=== PATIENT | male | born 1930 | race African-American/Black ===

== ENCOUNTER 2016-07-25 21:57 | Emergency (ER) | payer MEDICARE ==
[2016-07-25 23:11] LABS: ABSOLUTE LYMPHOCYTES (AUTO) 0.5 10^3/uL (0.5-4.7); ABSOLUTE MONOCYTES (AUTO) 0.8 10^3/uL (0.1-1.4); ABSOLUTE NEUT (AUTO) 8.4 10^3/uL (1.7-8.2); BASOPHILS % (AUTO) 0.2 % (0-2); EOSINOPHILS % (AUTO) 0.3 % (0-6); HEMOGLOBIN 12.4 g/dL (13.5-17.0); HGB HCT DIFFERENCE -0.8; LYMPHOCYTES % (AUTO) 5.6 % (13-45); MEAN CORPUSCULAR HEMOGLOBIN 31.6 pg (27.0-33.4); MEAN CORPUSCULAR HGB CONC 32.7 g/dL (32.0-36.0); MEAN CORPUSCULAR VOLUME 97 fl (80-97); MONOCYTES % (AUTO) 8.3 % (3-13); RED BLOOD COUNT 3.93 10^6/uL (4.35-5.55); RED CELL DISTRIBUTION WIDTH 13.5 % (11.5-14.0); SEGMENTED NEUTROPHILS % (AUTO) 85.6 % (42-78); WHITE BLOOD COUNT 9.8 10^3/uL (4.0-10.5)
[2016-07-25 23:22] LABS: ALANINE AMINOTRANSFERASE 28 U/L (21-72); ALBUMIN 3.5 g/dL (3.5-5.0); ALKALINE PHOSPHATASE 64 U/L (38-126); ANION GAP 16 (5-19); ASPARTATE AMINO TRANSFERASE 22 U/L (17-59); BILIRUBIN,DIRECT 0.8 mg/dL (0.0-0.4); BILIRUBIN,TOTAL 0.9 mg/dL (0.2-1.3); BLOOD UREA NITROGEN 38 mg/dL (7-20); CALCIUM 9.5 mg/dL (8.4-10.2); CARBON DIOXIDE 23 mmol/L (22-30); CHLORIDE 106 mmol/L (98-107); CREATINE KINASE 113 U/L (55-170); CREATININE RESULT 2.17 mg/dL (0.52-1.25); GLUCOSE 151 mg/dL (75-110); SODIUM 144.5 mmol/L (137-145)
[2016-07-25 23:34] LABS: CREATINE KINASE MB 1.07 ng/mL (<4.55); TROPONIN I < 0.012 ng/mL
[2016-07-26] MEDS ORDERED: BACITRACIN ZINC OINTMENT 15 GM TP ONE (00:37)
[2016-07-26] MEDS ORDERED: NORMAL SALINE 500 ML IV ONE (00:40)
--- NOTE | 2016-07-26 00:46 | ER Document Report ---
ED General - General Chief Complaint: Near Syncope Stated Complaint: GENERAL WEAKNESS Time Seen by Provider: 07/26/16 00:16 Mode of Arrival: Stretcher Information source: Patient, Relative Cannot obtain history due to: Dementia TRAVEL OUTSIDE OF THE [place] IN LAST 30 DAYS: No - HPI Notes: Patient is a 85-year-old black male history of insulin-dependent diabetes chronic kidney disease hypertension dementia presents to emergency department with report that he had a bowel movement and was standing up trying to bear down having a bowel movement when he had a near syncopal event and family laid down and he appeared generally weak. Blood pressure shortly thereafter was 112 systolic. Patient was given 100 mL of normal saline and arrived with stable blood pressure. Bowel movement may have been slightly looser than normal, but there is no rustam diarrhea or bright red blood per rectum. There's been no recent antibiotic use. The patient denies any pain anywhere. There is no head injury. Tetanus is up-to-date. Patient had a small abrasion on the left foot was some bleeding but he denies any pain there. No recent cough or congestion. There is a history of recent strep viridans infection of the urine on 07/12/16. team assembler granddaughter is unaware of any infection being treated with antibiotics. No recent medication changes. Note that the patient takes valsartan hydrochlorothiazide, but is not on Lasix. Patient normally ambulates very minimally with significant assistance. He has chronic dementia but can carry on limited conversations. Granddaughter states that he seems somewhat less interactive and more somnolent currently. There is no report of any head injury. - Related Data Allergies/Adverse Reactions: No Known Allergies Allergy (Verified 01/08/16 10:11) Past Medical History - Social History Smoking Status: Never Smoker Cigarette use (# per day): No Frequency of alcohol use: None Drug Abuse: None Lives with: Family Family History: CAD, Other - Renal failure - Past Medical History Cardiac Medical History: Reports: Hx Hypertension Neurological Medical History: Denies: Hx Seizures Endocrine Medical History: Reports: Hx Diabetes Mellitus Type 2, Hx Hypothyroidism Musculoskeltal Medical History: Reports Hx Arthritis - Generalized Review of Systems - Review of Systems Notes: REVIEW OF SYSTEMS: CONSTITUTIONAL : Denies fever, chills, or sweats. Denies recent illness. EENT: Denies eye, ear, throat, or mouth pain or symptoms. Denies nasal or sinus congestion or discharge. Denies throat, tongue, or mouth swelling or difficulty swallowing. CARDIOVASCULAR: Denies chest pain. Denies palpitations or racing or irregular heart beat. Denies ankle edema. RESPIRATORY: Denies cough, cold, or chest congestion. Denies shortness of breath, difficulty breathing, or wheezing. GASTROINTESTINAL: Denies abdominal pain or distention. Denies nausea, vomiting. Denies blood in vomitus, stools, or per rectum. Denies black, tarry stools. Denies constipation. GENITOURINARY: Denies difficulty urinating, painful urination, burning, frequency, blood in urine, or discharge. MUSCULOSKELETAL: Denies back or neck pain or stiffness. Denies joint pain or swelling. SKIN: Denies rash, lesions or sores. HEMATOLOGIC : Denies easy bruising or bleeding. LYMPHATIC: Denies swollen, enlarged glands. NEUROLOGICAL: Denies passing out or loss of consciousness. Denies dizziness or lightheadedness. Denies headache. Denies weakness or paralysis or loss of use of either side. Denies sensory loss, numbness, or tingling. Denies seizures. PSYCHIATRIC: Denies anxiety or stress. Denies depression, suicidal ideation, or homicidal ideation. ALL OTHER SYSTEMS REVIEWED AND NEGATIVE. Dictation was performed using [employer] voice recognition software Physical Exam - Vital signs Vitals: Temp Pulse Resp BP Pulse Ox 98.3 F 76 16 135/65 H 94 07/25/16 22:03 07/25/16 22:03 07/25/16 22:03 07/25/16 22:03 07/25/16 22:03 - Notes Notes: PHYSICAL EXAMINATION: GENERAL: Well-appearing, well-nourished and in no acute distress. HEAD: Atraumatic, normocephalic. EYES: Pupils equal round and reactive to light, extraocular movements intact, sclera anicteric, conjunctiva are normal. ENT: Nares patent, oropharynx clear without exudates. Moist mucous membranes. NECK: Normal range of motion, supple without lymphadenopathy. No obvious carotid bruits. LUNGS: Breath sounds clear to auscultation bilaterally and equal. No wheezes rales or rhonchi. HEART: Regular rate and rhythm without murmurs ABDOMEN: Soft, nontender, nondistended abdomen. No guarding, no rebound. No masses appreciated. Musculoskeletal: Normal range of motion, no pitting or edema. No cyanosis. NEUROLOGICAL: Cranial nerves grossly intact. Normal sensory, motor exams. Mild cerebellar ataxia noted. Patient is alert to person and place, recognizes that it is his granddaughter with him. He cannot get the granddaughter's name correct however, and she states this is somewhat unusual. PSYCH: Normal mood, normal affect. SKIN: Warm, Dry, normal turgor, no rashes noted. Patient has abrasion/small skin avulsion on the plantar aspect of the left third toe. There is no bony tenderness or deformity. No evidence for abscess. And distally patient is neurovascularly intact. Course - Re-evaluation Re-evalutation: 07/26/16 00:48 07/26/16 00:49 Patient gently rehydrated. Left foot abrasion cleaned and antibiotic ointment applied. Tetanus is up-to- date. 07/26/16 02:57 Patient wants on cardiac care nurse and had no ectopy. Vital signs remained stable. There is no evidence for significant anemia. Patient's chronic renal insufficiency is unchanged. Head CT negative for any acute intracranial process or CVA or hemorrhage. No evidence for urinary tract infection or severe dehydration. Symptoms fit more so with a vasovagal response from bowel movement. Discussed with the patient's granddaughter and the need to lay him down flat if symptoms recur. - Vital Signs Vital signs: Temp Pulse Resp BP Pulse Ox 98.3 F 76 20 142/65 H 98 07/25/16 22:03 07/25/16 22:03 07/26/16 01:01 07/26/16 01:01 07/26/16 01:01 - Laboratory Result Diagrams: 07/25/16 22:05 07/25/16 22:05 Laboratory results interpreted by me: 07/25/16 07/25/16 07/25/16 22:05 22:05 22:05 RBC 3.93 L Hgb 12.4 L Seg Neutrophils % 85.6 H Lymphocytes % 5.6 L Absolute Neutrophils 8.4 H BUN 38 H Creatinine 2.17 H Est GFR ( Amer) 35 L Est GFR (Non-Af Amer) 29 L Glucose 151 H Direct Bilirubin 0.8 H TSH 9.07 H Urine Urobilinogen 07/26/16 01:00 RBC Hgb Seg Neutrophils % Lymphocytes % Absolute Neutrophils BUN Creatinine Est GFR ( Amer) Est GFR (Non-Af Amer) Glucose Direct Bilirubin TSH Urine Urobilinogen 4.0 H - EKG Interpretation by Me EKG shows normal: Sinus rhythm Additional EKG results interpreted by me: 07/26/16 00:48 EKG as interpreted by me showed normal sinus rhythm heart rate of 74. There is no gross evidence for acute MO or ischemia identified. There is nonspecific T- wave abnormalities noted. There is no change from previous EKG reviewed from . Discharge - Discharge Clinical Impression: Near syncope, Abrasion, Chronic renal insufficiency, stage III (moderate) Condition: Stable Disposition: HOME, SELF-CARE Instructions: Vasovagal Symptoms ([facility]) Additional Instructions: Stand up slowly. Laid down flat if you feel lightheaded or weak. Drink plenty fluids. Referrals: MARISSA SMALLWOOD MD [Primary Care Provider] - Follow up as needed
[2016-07-26 01:07] LABS: THYROID STIMULATING HORMONE 9.07 uIU/mL (0.47-4.68)
[2016-07-26 01:20] LABS: APPEARANCE,URINE CLEAR; BILIRUBIN,URINE NEGATIVE (NEGATIVE); GLUCOSE, URINE NEGATIVE (NEGATIVE); KETONES,URINE NEGATIVE (NEGATIVE); LEUKOCYTE ESTERASE,URINE NEGATIVE (NEGATIVE); NITRITE,URINE NEGATIVE (NEGATIVE); PROTEIN,URINE NEGATIVE (NEGATIVE); URINE SPECIFIC GRAVITY 1.014
[2016-07-26 03:03] VITALS: BP 180/87
--- NOTE | 2016-07-26 12:07 | EKG REPORT ---
SEVERITY:- ABNORMAL ECG - SINUS RHYTHM FIRST DEGREE AV BLOCK NONSPECIFIC T ABNORMALITIES, LATERAL LEADS : Confirmed by: Jose Thompson 26-Jul-2016 12:06:44
== END 2016-07-26 03:51 | disposition home or self-care (01) ==
LOC: ER 21:57
DX: R55 Syncope and collapse (principal); R53.1 Weakness; S90.812A Abrasion, left foot, initial encounter; I12.9 Hypertensive chronic kidney disease with stage 1 through stage 4 chronic kidney disease, or unspecified chronic kidney disease; E11.22 Type 2 diabetes mellitus with diabetic chronic kidney disease; N18.3 Chronic kidney disease, stage 3 (moderate); E03.9 Hypothyroidism, unspecified; F03.90 Unspecified dementia, unspecified severity, without behavioral disturbance, psychotic disturbance, mood disturbance, and anxiety; X58.XXXA Exposure to other specified factors, initial encounter; Y92.009 Unspecified place in unspecified non-institutional (private) residence as the place of occurrence of the external cause; Z79.4 Long term (current) use of insulin
CPT/HCPCS: 93005; 99285; 36415; 84439; 82553; 82550; 84443; 85025; 80053; 81001; 84484; 70450; 93010; J3490; J7040

== ENCOUNTER 2016-11-28 09:49 | Emergency (ER) | payer MEDICARE ==
--- NOTE | 2016-11-28 10:13 | RADIOLOGY REPORT (SQ) ---
EXAM DESCRIPTION: CT HEAD WITHOUT COMPLETED DATE/TIME: 11/28/2016 9:57 am REASON FOR STUDY: bed 14 stroke alert COMPARISON: 07/26/2016 TECHNIQUE: Axial images acquired through the brain without intravenous contrast. Images reviewed wi th bone, brain and subdural windows. Images stored on PACS. All CT scanners at this facility use dose modulation, iterative reconstruction, and/or weight based d osing when appropriate to reduce radiation dose to as low as reasonably achievable (ALARA). [facility]: Dose Right [facility]: CareDose [facility]: Dose Right [facility]: Teradose 4D [facility]: [employer]ano RADIATION DOSE: 28.1 mGy. LIMITATIONS: None. FINDINGS: VENTRICLES: Moderate atrophy. CEREBRUM: No masses. No hemorrhage. No midline shift. No evidence for acute infarction. Extensive areas of low density in the white matter most likely chronic small vessel ischemic changes. CEREBELLUM: No masses. No hemorrhage. No alteration of density. No evidence for acute infarction. EXTRAAXIAL SPACES: No fluid collections. No masses. ORBITS AND GLOBE: No intra- or extraconal masses. Normal contour of globe without masses. CALVARIUM: No fracture. PARANASAL SINUSES: No fluid or mucosal thickening. Small mucous retention cyst in the left maxillary sinus. SOFT TISSUES: No mass or hematoma. OTHER: No other significant finding. IMPRESSION: 1. No evidence of acute event. 2. Atrophy and chronic small vessel ischemic disease. COMMENT: Pertinent positive or negative findings of the imaging study reported as a CRITICAL EXAM kendall GONZALEZ at10:06 on 11/28/2016. Category of Critical Exam: Code stroke Quality ID # [id number]: Final reports with documentation of one or more dose reduction techniques (e.g., Au tomated exposure control, adjustment of the mA and/or kV according to patient size, use of iterative reconstruction technique) TECHNICAL DOCUMENTATION: JOB ID: [id number] [employer]- All Rights Reserved
--- NOTE | 2016-11-28 10:18 | EKG REPORT ---
SEVERITY:- ABNORMAL ECG - SINUS RHYTHM SUPRAVENTRICULAR BIGEMINY BORDERLINE LEFT AXIS DEVIATION NONSPECIFIC T ABNORMALITIES, LATERAL LEADS : Confirmed by: Jose Thompson 28-Nov-2016 10:17:23
--- NOTE | 2016-11-28 10:20 | RADIOLOGY REPORT (SQ) ---
EXAM DESCRIPTION: CHEST SINGLE VIEW COMPLETED DATE/TIME: 11/28/2016 10:06 am REASON FOR STUDY: bed 14 stroke alert COMPARISON: 01/29/2016 EXAM PARAMETERS: NUMBER OF VIEWS: One view. TECHNIQUE: Single frontal radiographic view of the chest acquired. RADIATION DOSE: NA LIMITATIONS: None. FINDINGS: LUNGS AND PLEURA: No opacities, masses or pneumothorax. No pleural effusion. MEDIASTINUM AND HILAR STRUCTURES: No masses. Contour normal. HEART AND VASCULAR STRUCTURES: Heart normal in size. Normal vasculature. BONES: No acute findings. HARDWARE: None in the chest. OTHER: No other significant finding. IMPRESSION: NO ACUTE RADIOGRAPHIC FINDING IN THE CHEST. TECHNICAL DOCUMENTATION: JOB ID: [id number]
[2016-11-28 10:37] LABS: PARTIAL THROMBOPLASTIN TIME 34.9 SEC (23.5-35.8); PROTHROMBIN TIME 18.4 SEC (11.4-15.4)
[2016-11-28 10:39] LABS: ABSOLUTE EOSINOPHILS # (AUTO) 0.3 10^3/uL (0.0-0.6); ABSOLUTE LYMPHOCYTES (AUTO) 1.8 10^3/uL (0.5-4.7); ABSOLUTE MONOCYTES (AUTO) 0.4 10^3/uL (0.1-1.4); ABSOLUTE NEUT (AUTO) 2.4 10^3/uL (1.7-8.2); BASOPHILS % (AUTO) 0.6 % (0-2); EOSINOPHILS % (AUTO) 5.8 % (0-6); HEMATOCRIT 35.5 % (37.9-51.0); HEMOGLOBIN 11.6 g/dL (13.5-17.0); HGB HCT DIFFERENCE -0.7; LYMPHOCYTES % (AUTO) 36.3 % (13-45); MEAN CORPUSCULAR HEMOGLOBIN 31.2 pg (27.0-33.4); MEAN CORPUSCULAR HGB CONC 32.8 g/dL (32.0-36.0); MEAN CORPUSCULAR VOLUME 95 fl (80-97); MONOCYTES % (AUTO) 7.8 % (3-13); RED BLOOD COUNT 3.74 10^6/uL (4.35-5.55); RED CELL DISTRIBUTION WIDTH 14.2 % (11.5-14.0); SEGMENTED NEUTROPHILS % (AUTO) 49.5 % (42-78); WHITE BLOOD COUNT 4.9 10^3/uL (4.0-10.5)
[2016-11-28 10:43] LABS: ALANINE AMINOTRANSFERASE 16 U/L (21-72); ALBUMIN 3.5 g/dL (3.5-5.0); ALKALINE PHOSPHATASE 60 U/L (38-126); ANION GAP 10 (5-19); ASPARTATE AMINO TRANSFERASE 14 U/L (17-59); BILIRUBIN,DIRECT 0.4 mg/dL (0.0-0.4); BILIRUBIN,TOTAL 0.4 mg/dL (0.2-1.3); BLOOD UREA NITROGEN 39 mg/dL (7-20); CALCIUM 9.3 mg/dL (8.4-10.2); CARBON DIOXIDE 26 mmol/L (22-30); CHLORIDE 112 mmol/L (98-107); CREATINE KINASE 79 U/L (55-170); GLUCOSE 108 mg/dL (75-110); POTASSIUM 4.3 mmol/L (3.6-5.0); SODIUM 147.8 mmol/L (137-145); TOTAL PROTEIN 6.3 g/dL (6.3-8.2)
[2016-11-28 10:54] LABS: CREATINE KINASE MB 1.4 ng/mL (<4.55); TROPONIN I 0.02 ng/mL
--- NOTE | 2016-11-28 11:02 | ER Document Report ---
ED General - General Chief Complaint: S/S of Possible Stroke Stated Complaint: POSSIBLE STROKE Time Seen by Provider: 11/28/16 09:53 Notes: Patient is a 85 eyar old male who presents via EMS with complaint of AMS, left facial drooping. Per granddaughter at the bedside, last known normal was prior to bed last evening. His home nurse came at 8am, she received a call that he had left facial drooping, generalized AMS and weakness so she called 911, patient arrived at 10am. Patient has known history of dementia, previous AMS with facial drooping lasting a full hours with full recovery, IDDM, HTN, CKD stage III. Denies previous TIA, stroke, CAD, [place]. At this time, patient states he feels fine, denies any pain or weakness. Granddaughter states that he is not at his baseline and seems tired. Granddaughter states that his presentation is not outside his normal. Has has had mulitple episodes like this and is not time of day specific. She staes he will start with left facial drooping, generalized weakness and lethargy. She states his facial symptoms can last for 2-3 hours and resolve on their own, his generalized malaise lasting approx 12 hours. She states this happened most recently on Friday with complete resolution. PCP: Justin Monroy TRAVEL OUTSIDE OF THE [place] IN LAST 30 DAYS: No - Related Data Allergies/Adverse Reactions: No Known Allergies Allergy (Verified 01/08/16 10:11) Past Medical History - Social History Smoking Status: Former Smoker Family History: CAD, Other - Renal failure - Past Medical History Cardiac Medical History: Reports: Hx Hypertension Neurological Medical History: Denies: Hx Seizures Endocrine Medical History: Reports: Hx Diabetes Mellitus Type 2, Hx Hypothyroidism Musculoskeltal Medical History: Reports Hx Arthritis - Generalized Review of Systems - Review of Systems Constitutional: No symptoms reported EENT: No symptoms reported Cardiovascular: No symptoms reported Respiratory: No symptoms reported Gastrointestinal: No symptoms reported Musculoskeletal: No symptoms reported Neurological/Psychological: See HPI -: Yes All other systems reviewed and negative Physical Exam - Vital signs Vitals: Resp Pulse Ox 16 97 11/28/16 10:05 11/28/16 10:05 - General General appearance: Appears well, Alert In distress: None - HEENT Head: Normocephalic, Atraumatic Eyes: Normal Conjunctiva: Normal. No: Icteric, Injected, Purulent discharge Extraocular movements intact: Yes Eyelashes: Normal Pupils: PERRL Nerve palsy: No Visual mcgovern normal: Yes Neck: Normal, Supple. No: Carotid bruit - Respiratory Respiratory status: No respiratory distress Chest status: Nontender, Accessory muscle use Chest palpation: Normal - Cardiovascular Rhythm: Regular Heart sounds: Normal auscultation, S1 appreciated, S2 appreciated Gallop: None auscultated Pulses: Normal: Radial, Dorsalis pedis Normal capillary refill: Yes - Abdominal Inspection: Normal Distension: No distension Bowel sounds: Normal Tenderness: Nontender Organomegaly: No organomegaly - Back Back: Normal, Nontender - Extremities General upper extremity: Normal inspection, Nontender, Normal color, Normal ROM , Normal strength, Normal temperature General lower extremity: Normal inspection, Nontender, Normal color, Normal ROM , Normal strength, Normal temperature. No: Eli's sign - Neurological Neuro grossly intact: Yes Cognition: Normal Orientation: AAOx4 Emerson Coma Scale Eye Opening: Spontaneous [place] Coma Scale Verbal: Oriented Emerson Coma Scale Motor: Obeys Commands Emerson Coma Scale Total: 15 Speech: Normal Cranial nerves: Normal. No: Facial palsy, Forehead sparing, Gaze palsy, Sensory deficit, Tongue deviation Cerebellar coordination: Normal Motor strength normal: LUE, RUE, LLE, RLE Additional motor exam normals: Equal director sales support. No: Dorsiflexion, Involuntary movements, Plantar flexion, Pronator drift, Weakness, Hemiplegia, Other Sensory: Normal - Skin Skin Temperature: Warm Skin Moisture: Dry Skin Color: Normal Skin Turgor: Elastic Course - Re-evaluation Re-evalutation: 11/28/16 10:2 patient is an 85-year-old male who presents emergency department complaining of altered mental status that is not any different than his baseline. Hemodynamic is stable, GCS of 15, neuro exam normal. No focal deficits. No evidence of acute stroke noted on CT. No evidence of leukocytosis or anemia noted on CBC. No electrolyte abnormalities. Chronic kidney disease is stable. No evidence of urinalysis evidence of urinary tract infection or dehydration. Case discussed with supervising physician Dr. Maradiaga stating who agrees that patient is likely having TIAs. Case also discussed with patient's primary care physician Dr. Monroy but states this patient has been evaluated for this in the past but has many comorbidities that prohibit him from being on anticoagulation due to his noncompliance. 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 Discussion with the granddaughter at the bedside agrees that she does not want any any more aggressive treatment and as long as he is stable to return home she would like to take him home. She states that this patient is DNR/DNI. - Vital Signs Vital signs: Temp Pulse Resp BP Pulse Ox 65 16 160/87 H 100 11/28/16 13:15 11/28/16 13:15 11/28/16 13:15 11/28/16 13:15 - Laboratory Result Diagrams: 11/28/16 10:20 11/28/16 10:20 Laboratory results interpreted by me: 11/28/16 11/28/16 11/28/16 10:03 10:20 10:20 RBC 3.74 L Hgb 11.6 L Hct 35.5 L RDW 14.2 H PT 18.4 H Sodium Chloride BUN Creatinine Est GFR ( Amer) Est GFR (Non-Af Amer) POC Glucose 115 H AST ALT Ur Leukocyte Esterase 11/28/16 11/28/16 10:20 11:08 RBC Hgb Hct RDW PT Sodium 147.8 H Chloride 112 H BUN 39 H Creatinine 2.40 H Est GFR ( Amer) 31 L Est GFR (Non-Af Amer) 26 L POC Glucose AST 14 L ALT 16 L Ur Leukocyte Esterase SMALL H - Diagnostic Test Radiology reviewed: Image reviewed, Reports reviewed - no evidence of acute ischemia or hemorrhage - EKG Interpretation by Me Rate: Normal Rhythm: Arrthymia Heart block present: 1st Degree When compared to previous EKG there are: No significant change - previous first degree AV block Discharge - Discharge Clinical Impression: Dementia Qualifiers: Dementia type: unspecified type Dementia behavioral disturbance: without behavioral disturbance Qualified Code(s): F03.90 - Unspecified dementia without behavioral disturbance Altered mental status Qualifiers: Altered mental status type: unspecified Qualified Code(s): R41.82 - Altered mental status, unspecified Condition: Good Disposition: HOME, SELF-CARE Instructions: Altered Mental Status ([facility]), Dementia ([facility]) Referrals: JUSTIN MONROY MD [Primary Care Provider] - Follow up tomorrow
[2016-11-28 11:38] LABS: AMORPHOUS SEDIMENT,URINE TRACE /HPF; APPEARANCE,URINE CLEAR; BILIRUBIN,URINE NEGATIVE (NEGATIVE); GLUCOSE, URINE NEGATIVE (NEGATIVE); KETONES,URINE NEGATIVE (NEGATIVE); LEUKOCYTE ESTERASE,URINE SMALL (NEGATIVE); NITRITE,URINE NEGATIVE (NEGATIVE); PROTEIN,URINE NEGATIVE (NEGATIVE); URINE SPECIFIC GRAVITY 1.013; UROBILINOGEN,URINE NEGATIVE mg/dL (<2.0)
[2016-11-28] MEDS ORDERED: NORMAL SALINE 1000 ML 1,000 ML IV ONE (11:46)
[2016-11-28 13:54] VITALS: BP 160/87
== END 2016-11-28 14:07 | disposition home or self-care (01) ==
LOC: ER 09:49
DX: F03.90 Unspecified dementia, unspecified severity, without behavioral disturbance, psychotic disturbance, mood disturbance, and anxiety (principal); R41.82 Altered mental status, unspecified; R29.810 Facial weakness; E11.22 Type 2 diabetes mellitus with diabetic chronic kidney disease; I12.9 Hypertensive chronic kidney disease with stage 1 through stage 4 chronic kidney disease, or unspecified chronic kidney disease; N18.3 Chronic kidney disease, stage 3 (moderate); Z79.4 Long term (current) use of insulin; Z87.891 Personal history of nicotine dependence
CPT/HCPCS: 36415; 70450; 71010; 80053; 81001; 82550; 82553; 82962; 84484; 85025; 85610; 85730; 93005; 93010; 99285